=== PATIENT | male | born 1955 ===

== ENCOUNTER 2017-03-08 17:24 | Emergency (ER) | payer MEDICAID ==
[2017-03-08 18:01] VITALS: BP 126/73; PULSE 71; RESP 16; TEMP 98.6; O2SAT 98
[2017-03-08] MEDS ORDERED: Albuterol-Ipratrop 3 mg / 0.5 (3 ml) UD INH STA ×2 (18:20→18:39)
[2017-03-08] MEDS ORDERED: Albuterol-Ipratrop 3 mg / 0.5 (3 ml) UD ONE ×2 (18:34→18:43)
--- NOTE | 2017-03-08 18:39 | ED PDOC ---
HPI: CCC, URI, Sore Throat Time Seen by Provider: 03/08/17 18:11 Chief Complaint (Nursing): Cough, Cold, Congestion Chief Complaint (Provider): upper resp History Per: Patient History/Exam Limitations: no limitations Have you had recent travel within the past 21 days to any of the following countries: [place], [place], [place] or [place]?: No Onset/Duration Of Symptoms: Days (1), Waxing/Waning Current Symptoms Are (Timing): Still Present Location Of Pain: Sinus/es (congestion). denies: Ear(s), Throat, Diffuse Myalgias, Headache Associated Symptoms: Cough, Sputum. denies: Fever, Chills, Sore Throat, Neck Pain, Sinus Drainage, Myalgias, Nasal Congestion, Nausea, Vomiting, Diarrhea Ear Symptoms: Bilateral: None Additional Complaint(s): 61yo M sustained injury to left knee as well-2-3 days stepped on pebble now with pain to knee made worse with bearing wght no calf pain. Past Medical History Reviewed: Historical Data, Nursing Documentation, Vital Signs Vital Signs: Last Vital Signs Temp 98.6 F 03/08/17 17:59 Pulse 71 03/08/17 17:59 Resp 16 03/08/17 17:59 BP 126/73 03/08/17 17:59 Pulse Ox 98 03/08/17 17:59 - Medical History PMH: Asthma, Hepatitis (C) - Surgical History Surgical History: Appendectomy - Family History Family History: States: Unknown Family Hx - Home Medications Home Medications: Ambulatory Orders Medication Instructions Recorded Albuterol Sulfate [Albuterol 3 ml IH TID PRN #120 paula 01/22/14 Sulfate 2.5mg/3 ml 0.083%] Albuterol Sulfate [Albuterol Hfa] 0.09 mg IH PRN 03/11/14 Albuterol Sulfate [Albuterol 3 ml IH Q6 PRN #100 paula 03/11/14 Sulfate 2.5mg/3 ml 0.083%] Azithromycin [Zithromax Z-Chandu] 1 tab PO DAILY #6 tab 03/11/14 Prednisone 3 tab PO DAILY #12 tab 03/11/14 Albuterol 0.083% [Albuterol 3 ml IH Q4 #30 neb 11/13/14 Sulfate 3 Ml] Albuterol Sulfate [Ventolin Hfa] 2 puff IH Q4 PRN #1 inhaler 11/13/14 Methylprednisolone [Medrol Dosepak] 4 mg PO DAILY #0 tab 11/13/14 Azithromycin [Zithromax Z-Chandu] 250 mg PO DAILY #1 tab 12/10/14 Guaifenesin/Pseudoephedrne HCl 1 tab PO DAILY PRN #30 ter 12/10/14 [Mucinex D 600 mg-60 mg] Methylprednisolone [Medrol Dose 4 mg PO DAILY #21 mg 12/10/14 Pack (21 tabs)] Albuterol 1 puff IH Q4 PRN #1 inh 01/26/15 Albuterol Sulfate [Albuterol 3 ml IH Q6 PRN #30 vial 01/26/15 Sulfate 2.5mg/3 ml 0.083%] Azithromycin [Zithromax Z-Chandu] 250 mg PO DAILY #1 packet 01/26/15 Fluticasone Nasal [Flonase] 1 actuation NS BID #1 bottle 01/26/15 Prednisone [Deltasone] 60 mg PO DAILY #12 tab 01/26/15 Albuterol 0.5% [Albuterol 0.5% 3 ml IH Q6H PRN #30 neb 05/15/15 Inhal Paula (2.5 mg/0.5 ml) UD] Albuterol HFA [Ventolin HFA 90 2 puff IH [id number] PRN #1 bottle 05/15/15 mcg/actuation (8 g)] Azithromycin [Zithromax] 250 mg PO DAILY #4 tab 05/15/15 Prednisone 50 mg PO DAILY #4 tablet 05/15/15 Albuterol 0.083% [Albuterol 0.083% 2.5 mg IH QID PRN #20 10/18/15 Inhal Paula (2.5 mg/3 ml) UD] Albuterol HFA [Ventolin HFA 90 1 puff IH BID PRN #1 unit 10/18/15 mcg/actuation (8 g)] Albuterol HFA [Ventolin HFA 90 1 puff IH ASDIR #1 unit 04/12/16 mcg/actuation (8 g)] Azithromycin [Zithromax] 250 mg PO DAILY #6 tab 04/12/16 Benzonatate 200 mg PO TID PRN #20 capsule 04/12/16 Oseltamivir Phosphate [Tamiflu] 75 mg PO BID #10 capsule 04/12/16 predniSONE [Prednisone] 10 mg PO BID #10 tab 04/12/16 Albuterol HFA [Ventolin HFA 90 2 puff IH Q6 #200 puff 03/08/17 mcg/actuation (8 g)] Azithromycin [Zithromax] 250 mg PO DAILY #6 tab 03/08/17 predniSONE [predniSONE Tab] 20 mg PO BID #8 tab 03/08/17 - Allergies Allergies/Adverse Reactions: Allergies Allergy/AdvReac Type Severity Reaction Status Date / Time No Known Allergies Allergy Verified 03/08/17 17:59 Curb-65 Severity Score - CURB-65 Severity Score Confusion: No Bun >19mg/dl (>7mmol/L): No Respiratory Rate greater than/equal to 30: No Systolic BP <90 or Diastolic BP less than/equal 60mmHg: No Age >64: No Curb-65 Score: 0 Percentage 30-day mortality: 0.6% Review of Systems ROS Statement: Except As Marked, All Systems Reviewed And Found Negative Constitutional: Negative for: Fever, Chills Respiratory: Positive for: Cough, Sputum Musculoskeletal: Positive for: Leg Pain Physical Exam - Reviewed Nursing Documentation Reviewed: Yes Vital Signs Reviewed: Yes - Physical Exam Appears: Positive for: Well, Non-toxic, No Acute Distress Skin: Positive for: Normal Color, Warm, DRY Eye Exam: Positive for: Normal appearance, EOMI, PERRL ENT: Positive for: Normal ENT Inspection Cardiovascular/Chest: Positive for: Regular Rate, Rhythm Respiratory: Positive for: Wheezing. Negative for: Decreased Breath Sounds, Accessory Muscle Use Extremity: Positive for: Normal ROM. Negative for: Tenderness Neurologic/Psych: Positive for: Alert, Oriented - ECG O2 Sat by Pulse Oximetry: 98 - Radiology X-Ray: Interpreted by Ar X-Ray Interpretation: No Acute Disease Nebulizer Treatments/Peak Flow - Duonebs Number of Bronchodilator Doses given?: 2 - Steroid Treatment Steroid: Oral - Clinical Response Clinical Response: Improved Medical Decision Making Medical Decision Making: asthma exacerbation will be d.c with prednisone. stable for d/c Vital Signs - 24 hr 03/08/17 03/08/17 17:59 18:39 Temperature 98.6 F Pulse Rate 71 Respiratory 16 Rate Blood Pressure 126/73 O2 Sat by Pulse 98 98 Oximetry Disposition - Clinical Impression Clinical Impression: Asthma exacerbation - Patient ED Disposition Is Patient to be Admitted: No Counseled Patient/Family Regarding: Studies Performed, Diagnosis, Need For Followup, Rx Given - Disposition Disposition: Routine/Home Disposition Time: 18:40 Condition: STABLE Prescriptions: Albuterol HFA [Ventolin HFA 90 mcg/actuation (8 g)] 2 puff IH Q6 #200 puff Azithromycin [Zithromax] 250 mg PO DAILY #6 tab predniSONE [predniSONE Tab] 20 mg PO BID #8 tab Instructions: Asthma (ED) Forms: [facility] ED School/Work Excuse
--- NOTE | 2017-03-09 09:31 | RAD ---
PROCEDURE: Left Knee Radiographs. HISTORY: Pain. COMPARISON: None. FINDINGS: BONES: No acute fracture. JOINTS: Unremarkable. JOINT EFFUSION: None. OTHER FINDINGS: None. IMPRESSION: No demonstrated fracture or dislocation.
--- NOTE | 2017-03-09 09:31 | RAD ---
HISTORY: cough COMPARISON: Chest radiograph dated 04/12/2016 TECHNIQUE: Chest PA and lateral FINDINGS: LUNGS: No active pulmonary disease. PLEURA: No significant pleural effusion identified. No pneumothorax apparent. CARDIOVASCULAR: Normal. OSSEOUS STRUCTURES: Unchanged. VISUALIZED UPPER ABDOMEN: Normal. OTHER FINDINGS: None. IMPRESSION: No active disease.
== END 2017-03-08 19:36 | disposition home or self-care (01) ==
LOC: H.ER 17:24
DX: J45.901 Unspecified asthma with (acute) exacerbation (principal); M25.562 Pain in left knee

== ENCOUNTER 2017-06-16 16:25 | Emergency (ER) | payer MEDICAID ==
[2017-06-16 16:57] VITALS: PULSE 61; TEMP 98.3; O2SAT 99
--- NOTE | 2017-06-16 18:29 | ED PDOC ---
Lower Extremity Pain/Injury Time Seen by Provider: 06/16/17 17:10 Chief Complaint (Nursing): Lower Extremity Problem/Injury Chief Complaint (Provider): Lower Extremity Problem/Injury History Per: Patient History/Exam Limitations: no limitations Onset/Duration Of Symptoms: Persistent (x8 months), Worse Since (x2 days ago) Current Symptoms Are (Timing): Still Present Additional Complaint(s): 61 year old male with medical history of asthma and Hep C, presents to the emergency department with a complaint of atraumatic right knee pain ongoing for 8 months but worsen since yesterday. Patient admits to excessive walking and took Tylenol with no relief. He denies any numbness, tingling or calf pain. Also reports having wheezing this morning which resolved with his albuterol pump. Currently without any SOB, wheezing, or chest pain. Pt. is requesting refill of his albuterol inhaler and albuterol neb machine. Past Medical History Reviewed: Historical Data, Nursing Documentation, Vital Signs Vital Signs: Last Vital Signs Temp 98.3 F 06/16/17 16:55 Pulse 61 06/16/17 16:55 Resp 20 06/16/17 16:55 BP 160/90 H 06/16/17 16:55 Pulse Ox 99 06/16/17 16:55 - Medical History PMH: Asthma, Hepatitis (C) - Surgical History Surgical History: Appendectomy - Family History Family History: States: Unknown Family Hx - Social History Current smoker - smoking cessation education provided: No Ex-Smoker (has not smoked in the last 12 months): Yes Alcohol: None Drugs: Opiates (heroin) - Home Medications Home Medications: Ambulatory Orders Medication Instructions Recorded Albuterol Sulfate [Albuterol 3 ml IH TID PRN #120 paula 01/22/14 Sulfate 2.5mg/3 ml 0.083%] Albuterol Sulfate [Albuterol Hfa] 0.09 mg IH PRN 03/11/14 Albuterol Sulfate [Albuterol 3 ml IH Q6 PRN #100 paula 03/11/14 Sulfate 2.5mg/3 ml 0.083%] Azithromycin [Zithromax Z-Chandu] 1 tab PO DAILY #6 tab 03/11/14 RX: Prednisone 3 tab PO DAILY #12 tab 03/11/14 Albuterol 0.083% [Albuterol 3 ml IH Q4 #30 neb 11/13/14 Sulfate 3 Ml] Albuterol Sulfate [Ventolin Hfa] 2 puff IH Q4 PRN #1 inhaler 11/13/14 Methylprednisolone [Medrol Dosepak] 4 mg PO DAILY #0 tab 11/13/14 Azithromycin [Zithromax Z-Chandu] 250 mg PO DAILY #1 tab 12/10/14 Guaifenesin/Pseudoephedrne HCl 1 tab PO DAILY PRN #30 ter 12/10/14 [Mucinex D 600 mg-60 mg] Methylprednisolone [Medrol Dose 4 mg PO DAILY #21 mg 12/10/14 Pack (21 tabs)] Albuterol Sulfate [Albuterol 3 ml IH Q6 PRN #30 vial 01/26/15 Sulfate 2.5mg/3 ml 0.083%] Azithromycin [Zithromax Z-Chandu] 250 mg PO DAILY #1 packet 01/26/15 Fluticasone Nasal [Flonase] 1 actuation NS BID #1 bottle 01/26/15 RX: Albuterol 1 puff IH Q4 PRN #1 inh 01/26/15 RX: Prednisone [Deltasone] 60 mg PO DAILY #12 tab 01/26/15 Albuterol 0.5% [Albuterol 0.5% 3 ml IH Q6H PRN #30 neb 05/15/15 Inhal Paula (2.5 mg/0.5 ml) UD] Azithromycin [Zithromax] 250 mg PO DAILY #4 tab 05/15/15 RX: Albuterol HFA [Ventolin HFA 90 2 puff IH [id number] PRN #1 bottle 05/15/15 mcg/actuation (8 g)] RX: Prednisone 50 mg PO DAILY #4 tablet 05/15/15 Albuterol 0.083% [Albuterol 0.083% 2.5 mg IH QID PRN #20 10/18/15 Inhal Paula (2.5 mg/3 ml) UD] RX: Albuterol HFA [Ventolin HFA 90 1 puff IH BID PRN #1 unit 10/18/15 mcg/actuation (8 g)] Albuterol HFA [Ventolin HFA 90 1 puff IH ASDIR #1 unit 04/12/16 mcg/actuation (8 g)] Azithromycin [Zithromax] 250 mg PO DAILY #6 tab 04/12/16 Oseltamivir Phosphate [Tamiflu] 75 mg PO BID #10 capsule 04/12/16 RX: Benzonatate 200 mg PO TID PRN #20 capsule 04/12/16 predniSONE [Prednisone] 10 mg PO BID #10 tab 04/12/16 Albuterol 0.083% [Albuterol 3 ml IH Q4 #20 neb 03/08/17 Sulfate 3 Ml] RX: Albuterol HFA [Ventolin HFA 90 2 puff IH Q6 #200 puff 03/08/17 mcg/actuation (8 g)] RX: Azithromycin [Zithromax] 250 mg PO DAILY #6 tab 03/08/17 RX: predniSONE [predniSONE Tab] 20 mg PO BID #8 tab 03/08/17 Albuterol 0.083% [Albuterol 3 ml IH Q6 PRN #30 neb 06/16/17 Sulfate 3 Ml] Albuterol HFA [Ventolin HFA 90 2 puff IH [id number] PRN #1 inhaler 06/16/17 mcg/actuation (8 g)] Meloxicam [Mobic] 7.5 mg PO DAILY PRN #14 tab 06/16/17 - Allergies Allergies/Adverse Reactions: Allergies Allergy/AdvReac Type Severity Reaction Status Date / Time No Known Allergies Allergy Verified 06/16/17 16:54 Review of Systems ROS Statement: Except As Marked, All Systems Reviewed And Found Negative Musculoskeletal: Positive for: Leg Pain (right knee). Negative for: Other ( calf pain or trauma) Neurological: Negative for: Numbness (or tingling) Physical Exam - Reviewed Nursing Documentation Reviewed: Yes Vital Signs Reviewed: Yes - Physical Exam Appears: Positive for: Non-toxic, No Acute Distress Skin: Positive for: Normal Color. Negative for: Rash Cardiovascular/Chest: Positive for: Regular Rate, Rhythm Respiratory: Positive for: Normal Breath Sounds. Negative for: Wheezing, Respiratory Distress Pulses-Dorsalis Pedis (L): 2+ Pulses-Dorsalis Pedis (R): 2+ Extremity: Positive for: Normal ROM (right knee actively), Other (right knee crepitus). Negative for: Tenderness (right knee), Calf Tenderness (right-sided) , Deformity (right knee), Swelling ( or warmth/erythema of right knee) Neurologic/Psych: Positive for: Alert (x3), Oriented. Negative for: Motor/ Sensory Deficits - ECG O2 Sat by Pulse Oximetry: 99 (RA) Pulse Ox Interpretation: Normal Medical Decision Making Medical Decision Making: Initial Impression: Right knee pain Initial Plan: * Xray knee (right) * Toradol 30mg IM Time: 1812 --Xray knee (right) FINDINGS: BONES: No acute fracture or destructive bony lesion identified. However, diffuse osteopenia suggests osteoporosis. JOINTS: Medial compartment joint space narrowing is identified with articular cortical sclerosis and limited osteophyte development compatible with osteoarthritis. Lesser similar changes are identified at the lateral femorotibial and patellofemoral articulations. There is a minimal suprapatellar bursa effusion identified. JOINT EFFUSION: Resume OTHER FINDINGS: None. IMPRESSION: Moderately advanced osteoarthritis. No acute fracture or dislocation. Diffuse osteopenia suggests osteoporosis. Clinically correlate. Scribe Attestation: Documented by Gail Alvarado, acting as a scribe for Tuan Cabrera PA-C. Provider Scribe Attestation: All medical record entries made by the Scribe were at my direction and personally dictated by me. I have reviewed the chart and agree that the record accurately reflects my personal performance of the history, physical exam, medical decision making, and the department course for this patient. I have also personally directed, reviewed, and agree with the discharge instructions and disposition Disposition - Clinical Impression Clinical Impression: Knee pain, Medication refill - Patient ED Disposition Is Patient to be Admitted: No - Disposition Referrals: [facility] [Outside] [facility] [Outside] Niki Stanton MD [Staff Provider] - Disposition: Routine/Home Disposition Time: 18:30 Condition: STABLE Prescriptions: Albuterol HFA [Ventolin HFA 90 mcg/actuation (8 g)] 2 puff IH [id number] PRN #1 inhaler PRN Reason: Wheezing Albuterol 0.083% [Albuterol Sulfate 3 Ml] 3 ml IH Q6 PRN #30 neb PRN Reason: Wheezing Meloxicam [Mobic] 7.5 mg PO DAILY PRN #14 tab PRN Reason: Pain, Mild (1-3) Instructions: Asthma in Adults, Knee Pain (DC) Forms: [employer] (Hebrew)
[2017-06-16 19:56] VITALS: BP 171/88; RESP 18
== END 2017-06-16 18:50 | disposition home or self-care (01) ==
LOC: H.ER 16:25
DX: M17.11 Unilateral primary osteoarthritis, right knee (principal); J45.909 Unspecified asthma, uncomplicated; M85.80 Other specified disorders of bone density and structure, unspecified site; Z76.0 Encounter for issue of repeat prescription; Z87.891 Personal history of nicotine dependence
CPT/HCPCS: 73562; 96372; 99283; J1885

== ENCOUNTER 2018-03-17 14:18 | Emergency (ER) | payer MEDICAID ==
[2018-03-17 14:24] VITALS: TEMP 98.3
--- NOTE | 2018-03-17 14:57 | ED PDOC ---
HPI: SOB/CHF/COPD Time Seen by Provider: 03/17/18 14:49 Chief Complaint (Nursing): Shortness Of Breath Chief Complaint (Provider): Shortness Of Breath History Per: Patient History/Exam Limitations: no limitations Associated Symptoms: denies: Chest Pain Additional Complaint(s): 62 y/o male presents to ER due to asthma exacerbation. Patient reports he tried to use his pump today but it was empty. He denies chest pain, nausea and vomiting. PMD: None provided Past Medical History Reviewed: Historical Data, Nursing Documentation, Vital Signs Vital Signs: Last Vital Signs Temp 98.3 F 03/17/18 14:21 Pulse 90 03/17/18 14:21 Resp 13 03/17/18 14:42 BP 155/91 H 03/17/18 14:21 Pulse Ox 100 03/17/18 14:42 - Medical History PMH: Asthma, Hepatitis (C) - Surgical History Surgical History: Appendectomy - Family History Family History: States: Unknown Family Hx - Social History Current smoker - smoking cessation education provided: No Alcohol: None Drugs: Other (Heroin) - Home Medications Home Medications: Ambulatory Orders Medication Instructions Recorded Albuterol Sulfate [Albuterol 3 ml IH TID PRN #120 paula 01/22/14 Sulfate 2.5mg/3 ml 0.083%] Albuterol Sulfate [Albuterol Hfa] 0.09 mg IH PRN 03/11/14 Albuterol Sulfate [Albuterol 3 ml IH Q6 PRN #100 paula 03/11/14 Sulfate 2.5mg/3 ml 0.083%] Azithromycin [Zithromax Z-Chandu] 1 tab PO DAILY #6 tab 03/11/14 Prednisone 3 tab PO DAILY #12 tab 03/11/14 Albuterol 0.083% [Albuterol 3 ml IH Q4 #30 neb 11/13/14 Sulfate 3 Ml] Albuterol Sulfate [Ventolin Hfa] 2 puff IH Q4 PRN #1 inhaler 11/13/14 Methylprednisolone [Medrol Dosepak] 4 mg PO DAILY #0 tab 11/13/14 Azithromycin [Zithromax Z-Chandu] 250 mg PO DAILY #1 tab 12/10/14 Guaifenesin/Pseudoephedrne HCl 1 tab PO DAILY PRN #30 ter 12/10/14 [Mucinex D 600 mg-60 mg] Methylprednisolone [Medrol Dose 4 mg PO DAILY #21 mg 12/10/14 Pack (21 tabs)] Albuterol 1 puff IH Q4 PRN #1 inh 01/26/15 Albuterol Sulfate [Albuterol 3 ml IH Q6 PRN #30 vial 01/26/15 Sulfate 2.5mg/3 ml 0.083%] Azithromycin [Zithromax Z-Chandu] 250 mg PO DAILY #1 packet 01/26/15 Fluticasone Nasal [Flonase] 1 actuation NS BID #1 bottle 01/26/15 Prednisone [Deltasone] 60 mg PO DAILY #12 tab 01/26/15 Albuterol 0.5% [Albuterol 0.5% 3 ml IH Q6H PRN #30 neb 05/15/15 Inhal Paula (2.5 mg/0.5 ml) UD] Albuterol HFA [Ventolin HFA 90 2 puff IH [id number] PRN #1 bottle 05/15/15 mcg/actuation (8 g)] Azithromycin [Zithromax] 250 mg PO DAILY #4 tab 05/15/15 Prednisone 50 mg PO DAILY #4 tablet 05/15/15 Albuterol 0.083% [Albuterol 0.083% 2.5 mg IH QID PRN #20 10/18/15 Inhal Paula (2.5 mg/3 ml) UD] Albuterol HFA [Ventolin HFA 90 1 puff IH BID PRN #1 unit 10/18/15 mcg/actuation (8 g)] Albuterol HFA [Ventolin HFA 90 1 puff IH ASDIR #1 unit 04/12/16 mcg/actuation (8 g)] Azithromycin [Zithromax] 250 mg PO DAILY #6 tab 04/12/16 Benzonatate 200 mg PO TID PRN #20 capsule 04/12/16 Oseltamivir Phosphate [Tamiflu] 75 mg PO BID #10 capsule 04/12/16 predniSONE [Prednisone] 10 mg PO BID #10 tab 04/12/16 Albuterol 0.083% [Albuterol 3 ml IH Q4 #20 neb 03/08/17 Sulfate 3 Ml] Albuterol HFA [Ventolin HFA 90 2 puff IH Q6 #200 puff 01/10/18 mcg/actuation (8 g)] Azithromycin [Zithromax] 250 mg PO DAILY #6 tab 03/08/17 predniSONE [predniSONE Tab] 20 mg PO BID #8 tab 03/08/17 Albuterol 0.083% [Albuterol 3 ml IH Q6 PRN #30 neb 06/16/17 Sulfate 3 Ml] Albuterol HFA [Ventolin HFA 90 2 puff IH [id number] PRN #1 inhaler 06/16/17 mcg/actuation (8 g)] Meloxicam [Mobic] 7.5 mg PO DAILY PRN #14 tab 06/16/17 - Allergies Allergies/Adverse Reactions: Allergies Allergy/AdvReac Type Severity Reaction Status Date / Time No Known Allergies Allergy Verified 03/17/18 14:20 Review of Systems ROS Statement: Except As Marked, All Systems Reviewed And Found Negative Cardiovascular: Negative for: Chest Pain Respiratory: Positive for: Shortness of Breath Gastrointestinal: Negative for: Nausea, Vomiting Physical Exam - Reviewed Nursing Documentation Reviewed: Yes Vital Signs Reviewed: Yes - Physical Exam Appears: Positive for: Non-toxic, No Acute Distress Head Exam: Positive for: ATRAUMATIC, NORMOCEPHALIC Skin: Positive for: Normal Color, Warm, Dry Eye Exam: Positive for: Normal appearance, EOMI, PERRL Neck: Positive for: Normal, Painless ROM, Supple Cardiovascular/Chest: Positive for: Regular Rate, Rhythm. Negative for: Murmur Respiratory: Positive for: Wheezing (Left sided), Other (Left sided decreased air entry) Gastrointestinal/Abdominal: Positive for: Normal Exam, Soft. Negative for: Tenderness Back: Positive for: Normal Inspection. Negative for: L CVA Tenderness, R CVA Tenderness Extremity: Positive for: Normal ROM. Negative for: Pedal Edema, Swelling Neurologic/Psych: Positive for: Alert, Oriented (x3) - ECG O2 Sat by Pulse Oximetry: 100 (RA) Pulse Ox Interpretation: Normal Medical Decision Making Medical Decision Makin MDM: workup for acure asthma exacerbation limited to left lung --Duoneb --CXR --Albuterol --Prednisone 1654 Patient reports feeling better and no longer wheezing Full air entry bilaterally on reevaluation CXR shows no infiltrate Patient to be discharged with albuterol and prednisone and instructed to follow up with PMD Scribe Attestation: Documented by Shalonda Lara, acting as a scribe for Brit Nolan MD. Provider Scribe Attestation: All medical record entries made by the Scribe were at my direction and personally dictated by me. I have reviewed the chart and agree that the record accurately reflects my personal performance of the history, physical exam, medical decision making, and the department course for this patient. I have also personally directed, reviewed, and agree with the discharge instructions and disposition. Disposition - Clinical Impression Clinical Impression: Asthma exacerbation - Patient ED Disposition Is Patient to be Admitted: No - Disposition Disposition: Routine/Home Disposition Time: 16:54 Condition: STABLE Forms: [employer] (Lao)
[2018-03-17] MEDS ORDERED: Albuterol-Ipratrop 3 mg / 0.5 (3 ml) UD INH STA (15:02)
[2018-03-17] MEDS ORDERED: Albuterol-Ipratrop 3 mg / 0.5 (3 ml) UD ONE (15:20)
--- NOTE | 2018-03-17 15:50 | RAD ---
Date of service: 03/17/2018 HISTORY: possible admission COMPARISON: Chest radiograph dated 03/08/2017 FINDINGS: LUNGS: No active pulmonary disease. PLEURA: No significant pleural effusion identified, no pneumothorax apparent. CARDIOVASCULAR: Aortic atherosclerotic calcifications. Cardiomediastinal silhouette stably enlarged OSSEOUS STRUCTURES: Unchanged. VISUALIZED UPPER ABDOMEN: Normal. OTHER FINDINGS: Possible bilateral hilar adenopathy IMPRESSION: No focal consolidation or pleural effusion. Possible bilateral hilar adenopathy. Contrast-enhanced CT scan of the chest can be obtained for further evaluation as clinically needed.
[2018-03-17 16:44] VITALS: BP 120/77; PULSE 51; RESP 18
[2018-03-17 16:55] VITALS: O2SAT 100
--- NOTE | 2018-03-18 16:50 | CARD ---
APPROVED REPORT Date of service: 03/17/2018 EKG Measurement Heart [id number] <Conclusion> Sinus bradycardia Otherwise normal ECG
== END 2018-03-17 17:26 | disposition home or self-care (01) ==
LOC: H.ER 14:18
DX: J45.901 Unspecified asthma with (acute) exacerbation (principal); J44.9 Chronic obstructive pulmonary disease, unspecified

== ENCOUNTER 2018-05-29 17:04 | Emergency (ER) | payer MEDICAID ==
[2018-05-29 17:21] VITALS: TEMP 98.3
[2018-05-29] MEDS ORDERED: Albuterol-Ipratrop 3 mg / 0.5 (3 ml) UD INH STA ×2 (17:26→18:47)
--- NOTE | 2018-05-29 17:59 | ED PDOC ---
HPI: SOB/CHF/COPD Time Seen by Provider: 05/29/18 17:20 Chief Complaint (Nursing): Shortness Of Breath History Per: Patient, Family () Additional Complaint(s): Pt. states earlier this afternoon he developed wheezing despite using his nebulizer. Reports a hx of asthma and symptoms are c/w previous asthma attacks. Denies chest pain, hemoptysis, fever, productive cough, BUSH, leg pain. Past Medical History Reviewed: Historical Data, Nursing Documentation, Vital Signs Vital Signs: Last Vital Signs Temp 98.3 F 05/29/18 17:17 Pulse 78 05/29/18 17:17 Resp 26 H 05/29/18 17:35 BP 121/72 05/29/18 17:17 Pulse Ox 90 L 05/29/18 17:35 - Medical History PMH: Asthma, Hepatitis (C) - Surgical History Surgical History: Appendectomy - Family History Family History: States: No Known Family Hx - Home Medications Home Medications: Ambulatory Orders Medication Instructions Recorded Albuterol 0.083% [Albuterol 3 ml IH Q4 PRN #30 neb 05/29/18 Sulfate 3 Ml] Prednisone 50 mg PO DAILY #4 tab 05/29/18 - Allergies Allergies/Adverse Reactions: Allergies Allergy/AdvReac Type Severity Reaction Status Date / Time No Known Allergies Allergy Verified 05/29/18 17:17 Review of Systems ROS Statement: Except As Marked, All Systems Reviewed And Found Negative Respiratory: Positive for: Wheezing Physical Exam - Physical Exam Appears: Positive for: Well (speaking in full sentences), Non-toxic, No Acute Distress Skin: Positive for: Normal Color, Warm. Negative for: Rash Eye Exam: Positive for: Normal appearance Cardiovascular/Chest: Positive for: Regular Rate, Rhythm. Negative for: Tachycardia Respiratory: Positive for: Wheezing (b/l expiratory wheezing). Negative for: Decreased Breath Sounds, Accessory Muscle Use, Rales, Rhonchi, Respiratory Distress Gastrointestinal/Abdominal: Positive for: Soft. Negative for: Tenderness, Distended Neurological/Psych: Positive for: Awake, Alert, Oriented (x3) - ECG ECG: Positive for: Interpreted By Me ECG Rhythm: Positive for: Sinus Rhythm. Negative for: ST/T Changes Rate: 62 O2 Sat by Pulse Oximetry: 90 - Radiology X-Ray: Interpreted by Me (and confirmed by radiologist (CXR)) X-Ray Interpretation: No Acute Disease - Progress ED Course And Treament: DuoNeb x 3, prednisone 60mg PO, EKG, CXR ordered. 1840 On re-evaluation, pt. reports feeling much better. Wheezing still present but improved. Denies chest pain. Repeat POX: 95% on RA. Post peak flow: 180 1950 On 2nd re-evaluation, pt reports good relief of wheezing. No respiratory distress. Wheezing resolved. Denies chest pain. Repeat POX: 96% on RA. Post peak flow: 300. Requesting refill for albuterol nebs. Has machine and inhaler at home. Disposition - Clinical Impression Clinical Impression: Bronchospasm, acute - Patient ED Disposition Is Patient to be Admitted: No - Disposition Referrals: Program Lead Service [Outside] Disposition: Routine/Home Disposition Time: 19:52 Condition: IMPROVED Additional Instructions: FOLLOW UP WITH DR. POE FOR FURTHER EVALUATION RETURN TO ED IMMEDIATELY IF SYMPTOMS WORSEN CLEMENT ABRAMS, thank you for letting us take care of you today. Your provider was Jaimee Patton MD and you were treated for DIFFICULTY BREATHING. The emergency medical care you received today was directed at your acute symptoms. If you were prescribed any medication, please fill it and take as directed. It may take several days for your symptoms to resolve. Return to the Emergency Department if your symptoms worsen, do not improve, or if you have any other problems. Please contact your doctor or call one of the physicians/clinics you have been referred to that are listed on the Patient Visit Information form that is included in your discharge packet. Bring any paperwork you were given at discharge with you along with any medications you are taking to your follow up visit. Our treatment cannot replace ongoing medical care by a primary care provider outside of the emergency department. Thank you for allowing the [facility] team to be part of your care today. If you had an X-Ray or CT scan: A Radiologist will review the ED reading if any change in treatment is needed we will contact you. If you had a blood, urine, or wound culture: It will take several days for the results, if any change in treatment is needed we will contact you. If you had an STI test: It will take 48 hours for the results. Please call after 1 week if you have not heard back. Prescriptions: Albuterol 0.083% [Albuterol Sulfate 3 Ml] 3 ml IH Q4 PRN #30 neb PRN Reason: Wheezing Prednisone 50 mg PO DAILY #4 tab Instructions: Asthma, Adult (DC) Forms: [employer] ([facility] [employer])
--- NOTE | 2018-05-29 18:33 | RAD ---
Date of service: 05/29/2018 HISTORY: Cough COMPARISON: 03/17/2018 TECHNIQUE: Chest PA and lateral FINDINGS: LINES AND TUBES: None. LUNG AND PLEURA: The lungs are well inflated and clear. No pleural effusion or pneumothorax. HEART AND MEDIASTINUM: The heart is not enlarged. No aortic atherosclerotic calcifications present. The hilar and mediastinal contours are within normal limits. SKELETAL STRUCTURES: The bony structures are within normal limits for the patient's age. VISUALIZED UPPER ABDOMEN: Normal. OTHER FINDINGS: None. IMPRESSION: No active pulmonary disease.
[2018-05-29 19:43] VITALS: BP 123/79; RESP 16
[2018-05-29 19:49] VITALS: O2SAT 90
[2018-05-29 19:57] VITALS: PULSE 62
--- NOTE | 2018-05-30 11:10 | CARD ---
APPROVED REPORT Date of service: 05/29/2018 EKG Measurement Heart [id number] <Conclusion> Normal sinus rhythm Nonspecific T wave abnormality Abnormal ECG
== END 2018-05-29 20:32 | disposition home or self-care (01) ==
LOC: H.ER 17:04
DX: J44.9 Chronic obstructive pulmonary disease, unspecified (principal)